=== PATIENT | female | born 1985 | race Caucasian/White ===

== ENCOUNTER → 2018-01-26 | Outpatient (CLI) | payer MEDICAID | LOC: GIMAGING 11:08 | PROVIDERS: ATTEND Family Medicine | DX: M54.2 Cervicalgia (principal) | CPT/HCPCS: 72040-PO ==

== ENCOUNTER → 2018-05-29 | Outpatient (CLI) | payer MEDICAID | LOC: EMCIMAGING 11:13 | PROVIDERS: ATTEND Family Medicine | DX: M50.221 Other cervical disc displacement at C4-C5 level (principal); M47.812 Spondylosis without myelopathy or radiculopathy, cervical region; M48.02 Spinal stenosis, cervical region | CPT/HCPCS: 72141-PN ==